=== PATIENT | male | born 1950 | race Caucasian/White ===

== ENCOUNTER 2020-06-06 09:00 | Inpatient (IN) | payer MEDICARE ==
[2020-06-06] VITALS (12 sets, daily range): BP systolic 103–155; BP diastolic 52–93
[~2020-06-06] VITALS: Ht 185.4 cm; Wt 111.8 kg
[2020-06-06] MEDS ORDERED: normal saline 1,000 ML IV SCH (09:20)
[2020-06-06] MEDS ORDERED: diphenhydrAMINE 25mg capsule PO PRN (09:20)
[2020-06-06] MEDS ORDERED: heparin 1,000unit/ml 10ml vial 10 ML ONE (10:32)
[2020-06-06] MEDS ORDERED: fentaNYL/PF 50MCG/1 ML 2ML syringe ONE ×3 (10:32→12:18)
[2020-06-06] MEDS ORDERED: iohexol 350MG/ML 100ml bottle IV ONE (10:32)
[2020-06-06] MEDS ORDERED: midazolam 2 mg/2 ml injection ONE ×4 (10:32→12:18)
[2020-06-06] MEDS ORDERED: iohexol 350 MG/ML 50ML vial IV ONE ×4 (10:32→12:09)
[2020-06-06] MEDS ORDERED: LIDOcaine 1% (10mg/ml)w/preservative injection 20ml MDV ONE (10:32)
[2020-06-06] MEDS ORDERED: ATOR80TA PO (10:57)
[2020-06-06] MEDS ORDERED: NITR0.4T51 SL (10:57)
[2020-06-06] MEDS ORDERED: ASPI-611 PO (10:57)
[2020-06-06] MEDS ORDERED: IRON18TA PO (10:57)
[2020-06-06] MEDS ORDERED: HYDR-4353 PO (10:57)
[2020-06-06] MEDS ORDERED: BISO5TAB PO (10:57)
[2020-06-06] MEDS ORDERED: VIT D PO (10:57)
[2020-06-06] MEDS ORDERED: AMLO5TAB4 PO (10:57)
[2020-06-06] MEDS ORDERED: OMEG-79 PO (10:57)
[2020-06-06] MEDS ORDERED: ZOLP5TAB8 PO (10:57)
[2020-06-06] MEDS ORDERED: LISINOPRIL PO (10:57)
[2020-06-06] MEDS ORDERED: GABA800T11 PO (10:57)
[2020-06-06] MEDS ORDERED: GLIM4TAB7 PO (10:57)
[2020-06-06] MEDS ORDERED: METF500T PO (10:57)
[2020-06-06] MEDS ORDERED: DORZ10DR19 EACHEYE (10:57)
[2020-06-06] MEDS ORDERED: VIT B12 PO (10:57)
[2020-06-06] MEDS ORDERED: diphenhydrAMINE 50 mg/ml inj ONE (12:05)
[2020-06-06] MEDS ORDERED: nitroGLYCERIN-Tridil 50MG/D5W 250 ML IV ONE (12:22)
[2020-06-06] MEDS ORDERED: metoprolol tartrate 1mg/ml inj IV ONE (12:30)
[2020-06-06] MEDS ORDERED: ticagrelor 90mg tablet ONE (12:48)
[2020-06-06] MEDS ORDERED: furosemide 40mg/4ml inj ONE (12:48)
[2020-06-06] MEDS ORDERED: magnesium hydroxide 30ml (MOM) UD suspension PO PRN (14:15)
[2020-06-06] MEDS ORDERED: OXAZEpam 15mg capsule PO PRN (14:15)
[2020-06-06] MEDS ORDERED: nitroGLYCERIN-Tridil 50MG/D5W 250 ML IV SCH ×2 (14:15→15:25)
[2020-06-06] MEDS ORDERED: proCHLORperazine 10 MG/2 ml inj IV PRN (14:15)
[2020-06-06] MEDS ORDERED: morphine 10mg/ml inj. IV PRN (14:15)
[2020-06-06] MEDS ORDERED: ondansetron/PF 4mg/2ml inj IV PRN (14:20)
[2020-06-06] MEDS ORDERED: morphine 4 MG/ML inj SYRINge IV PRN (14:25)
[2020-06-06] MEDS ORDERED: HYDROcodone/acetaminophen 10/325mg tab PO PRN ×3 (14:30→17:20)
[2020-06-06] MEDS: aspirin 81mg tab.chew PO SCH (15:04)
--- NOTE | 2020-06-06 15:23 | NUR ---
MD DR. REECE CHANGED NITRO DRIP FROM 20MCG TO 5MCG DUE TO HYPOTENSION
[2020-06-06 15:43] LABS: BASOPHILS % (AUTO) 0.5 % (0-1); EOSINOPHILS # (AUTO) 0.4 X10'3 (0-0.9); EOSINOPHILS % (AUTO) 6.8 % (0-6); HEMATOCRIT 35.7 % (42.0-52.0); HEMOGLOBIN 12.1 g/dl (14.0-17.9); LYMPHOCYTES # (AUTO) 1.6 X10'3 (1.1-4.8); LYMPHOCYTES % (AUTO) 30.8 % (21-51); MEAN CORPUSCULAR HEMOGLOBIN 29.5 PG (27.0-31.0); MEAN CORPUSCULAR VOLUME 86.9 FL (78-98); MONOCYTES # (AUTO) 0.4 X10'3 (0-0.9); MONOCYTES % (AUTO) 8.1 % (2-12); NEUTROPHILS # (AUTO) 2.8 X10'3 (1.8-7.7); NEUTROPHILS % (AUTO) 53.8 % (42-75); PLATELET COUNT 137 X10'3 (140-440); RED BLOOD COUNT 4.11 X10'6 (4.70-6.10); RED CELL DISTRIBUTION WIDTH 13.4 % (11.5-14.5); WHITE BLOOD COUNT 5.3 X10'3 (4.5-11.0)
[2020-06-06 15:53] LABS: ALBUMIN 3.8 G/DL (3.4-5.0); ANION GAP 10 (8-16); BLOOD UREA NITROGEN 24 MG/DL (7-18); BUN/CREATININE RATIO 13.6 (5.4-32.0); CALCIUM 8.7 MG/DL (8.5-10.1); CHLORIDE 106 MMOL/L (99-107); CREATININE 1.77 MG/DL (0.60-1.10); GLUCOSE 163 MG/DL (70-104); MAGNESIUM 1.8 MG/DL (1.5-2.4); POTASSIUM 4.9 MMOL/L (3.5-5.1); SODIUM 140 MMOL/L (135-145); TOTAL CARBON DIOXIDE 24.4 MMOL/L (24-32); eGFR 38 ML/MIN
[2020-06-06] MEDS ORDERED: normal saline 1000ml 1,000 ML IV SCH (17:10)
[2020-06-06] MEDS ORDERED: zolpidem 5mg tablet PO PRN (17:20)
[2020-06-06] MEDS ORDERED: nitroGLYCERIN 0.4mg SUBLingual tab SL PRN (17:20)
--- NOTE | 2020-06-06 18:00 | NUR ---
Patient in room PCU 3017. I have received report from Richy SIMMS and had the opportunity to ask questions and assume patient care.
--- NOTE | 2020-06-06 18:14 | NUR ---
Problems reprioritized. Patient report given, questions answered & plan of care reviewed with Nikki SIMMS.
[2020-06-06] MEDS: ticagrelor 90mg tablet PO SCH (19:46)
[2020-06-06] MEDS: docusate sod 100mg capsule PO SCH (19:47)
[2020-06-06] MEDS ORDERED: gabapentin 400mg capsule PO SCH ×2 (20:10→23:00)
[2020-06-06] MEDS ORDERED: atorvastatin 20mg tablet PO SCH (21:00)
[2020-06-06] MEDS: HYDROcodone/acetaminophen 10/325mg tab PO PRN (21:42)
[2020-06-07] MEDS ORDERED: gabapentin 400mg capsule PO SCH
[2020-06-07] MEDS: HYDROcodone/acetaminophen 10/325mg tab PO PRN (01:47)
[2020-06-07 02:00] VITALS: BP 110/59
--- NOTE | 2020-06-07 05:56 | NUR ---
END NOC NOTE Patient's medication needed to be retimed. Patient takes Gabapentin: 600 mg in the morning, 1200 mg at 1830, 1200 mg at 2200; [place] 20mg was changed to Q4H as well, all okayed by MD Orellana. Blood pressures have been stable all night with Nitroglycerin drip.
--- NOTE | 2020-06-07 06:41 | NUR ---
Problems reprioritized. Patient report given, questions answered & plan of care reviewed with Dasha SIMMS.
[2020-06-07] MEDS ORDERED: metFORMIN 500mg tablet PO SCH (07:00)
[2020-06-07] MEDS: ticagrelor 90mg tablet PO SCH (07:31)
[2020-06-07] MEDS: aspirin 81mg tab.chew PO SCH (07:32)
[2020-06-07] MEDS: docusate sod 100mg capsule PO SCH (07:34)
[2020-06-07 08:00] VITALS: BP_SYST 113
[2020-06-07] MEDS ORDERED: gabapentin 300mg capsule PO SCH (08:00)
[2020-06-07] MEDS ORDERED: atenolol 50mg tablet PO SCH (08:00)
[2020-06-07] MEDS ORDERED: OMEGA-3/DHA/EPA/FISH OIL 1 EACH CAPSULE.DR PO SCH (08:00)
[2020-06-07] MEDS ORDERED: lisinopril 5mg tablet PO SCH (08:00)
[2020-06-07] MEDS ORDERED: amLODIPine 5mg tablet PO SCH (08:00)
[2020-06-07] MEDS ORDERED: non-formulary drug (Aspirin (Aspir 81) 1 TAB) PO SCH (08:00)
[2020-06-07] MEDS ORDERED: dorzolamide 2% ophthalmic drops 10ml EACHEYE SCH (08:00)
[2020-06-07] MEDS ORDERED: TICA90TA PO (10:07)
[2020-06-07] MEDS ORDERED: FURO-150 PO (10:39)
--- NOTE | 2020-06-07 10:45 | NUR ---
Per MD orders patient stable for discharge home. All new prescriptions called in to pharmacy of preference. Discharge packet reviewed with patient at bedside and all questions answered to patient satisfaction. Implant card placed in wallet by patient. Tele monitoring discontinued. PIV discontinued cannula intact. All belongings sent with patient. Ambulated to private vehicle accompanied by
== END 2020-06-07 10:35 | disposition home or self-care (01) | DRG 247 ==
LOC: SSTAY O 09:00 → PCU 3S 12:50
PROVIDERS: ADMIT Internal Medicine Cardiovascular Disease; ATTEND Internal Medicine Cardiovascular Disease
PROC: 4A023N7 Measurement of Cardiac Sampling and Pressure, Left Heart, Percutaneous Approach (ICD-10-PCS; principal; 2020-06-06)
PROC: 027034Z Dilation of Coronary Artery, One Artery with Drug-eluting Intraluminal Device, Percutaneous Approach (ICD-10-PCS; 2020-06-06)
PROC: B2111ZZ Fluoroscopy of Multiple Coronary Arteries using Low Osmolar Contrast (ICD-10-PCS; 2020-06-06)
PROC: B2151ZZ Fluoroscopy of Left Heart using Low Osmolar Contrast (ICD-10-PCS; 2020-06-06)
DX: I25.10 Atherosclerotic heart disease of native coronary artery without angina pectoris (principal); I10 Essential (primary) hypertension; E78.5 Hyperlipidemia, unspecified; E11.9 Type 2 diabetes mellitus without complications; Z95.1 Presence of aortocoronary bypass graft
CPT/HCPCS: 93459; C9600; 36415; 80048; 82948; 83735; 85025; 85610; 93005; 99152; 99153; A4620; A6258; C1725; C1751; C1760; C1769; C1874; C1894; G0378; J1200; J1644; J1940; J2001; J2250; J3010; J3490; J7030; Q0163; Q9967

== ENCOUNTER 2023-08-29 07:13 | Day surgery (SDC) | payer MEDICARE ==
[2023-08-29] VITALS (9 sets, daily range): BP systolic 117–141; BP diastolic 63–72; PULSE 51–63; RESP 12–14; TEMP 98.2; O2SAT 94–99
[~2023-08-29] VITALS: Ht 185.4 cm; Wt 107.3 kg
[~2023-08-29 07:13] MED LIST: AMLO5TAB4 PO; ASPI-611 PO; ATOR80TA PO; BISO5TAB PO; DORZ10DR19 EACHEYE; FURO-150 PO; GABA800T11 PO; GLIM4TAB7 PO; HYDR-4353 PO; LISINOPRIL PO; METF500T PO; NITR0.4T51 SL; OMEG-79 PO; TICA90TA PO; ZOLP5TAB8 PO
[2023-08-29] MEDS ORDERED: diphenhydrAMINE 25mg capsule PO PRN (07:35)
[2023-08-29] MEDS ORDERED: normal saline 1,000 ML IV SCH (07:35)
[2023-08-29] MEDS ORDERED: GABA600T13 PO (08:00)
[2023-08-29] MEDS ORDERED: LISI10TA27 PO (08:02)
[2023-08-29 08:04] LABS: BASOPHILS % (AUTO) 0.3 % (0-1); EOSINOPHILS # (AUTO) 0.3 X10'3 (0-0.9); EOSINOPHILS % (AUTO) 4.1 % (0-6); HEMATOCRIT 39.6 % (42.0-52.0); HEMOGLOBIN 13.4 g/dl (14.0-17.9); LYMPHOCYTES # (AUTO) 1.8 X10'3 (1.1-4.8); LYMPHOCYTES % (AUTO) 29.6 % (21-51); MEAN CORPUSCULAR HEMOGLOBIN 28.7 PG (27.0-31.0); MEAN CORPUSCULAR HGB CONC 33.8 g/dL (33.0-36.5); MEAN CORPUSCULAR VOLUME 85.1 FL (78-98); MEAN PLATELET VOLUME 7.9 FL (7.4-10.4); MONOCYTES # (AUTO) 0.7 X10'3 (0-0.9); MONOCYTES % (AUTO) 11.4 % (2-12); NEUTROPHILS # (AUTO) 3.4 X10'3 (1.8-7.7); NEUTROPHILS % (AUTO) 54.6 % (42-75); PLATELET COUNT 141 X10'3 (140-440); RED BLOOD COUNT 4.65 X10'6 (4.70-6.10); RED CELL DISTRIBUTION WIDTH 14.1 % (11.5-14.5); WHITE BLOOD COUNT 6.2 X10'3 (4.5-11.0)
[2023-08-29] MEDS ORDERED: LANTUS SQ (08:04)
[2023-08-29] MEDS ORDERED: MORP15TA PO (08:04)
[2023-08-29 08:15] LABS: PROTHROMBIN TIME 10.4 SECONDS (9.0-12.0)
[2023-08-29 08:26] LABS: ALBUMIN 4.1 G/DL (3.4-5.0); ANION GAP 13 (8-16); BLOOD UREA NITROGEN 30 MG/DL (7-18); BUN/CREATININE RATIO 15.6 (10.0-20.0); CALCIUM 9.1 MG/DL (8.5-10.1); CHLORIDE 104 MMOL/L (99-107); CREATININE 1.92 MG/DL (0.60-1.10); GLUCOSE 116 MG/DL (70-104); MAGNESIUM 2.4 MG/DL (1.5-2.4); SODIUM 140 MMOL/L (135-145); TOTAL CARBON DIOXIDE 23.4 MMOL/L (24-32); eCRCL 38 ML/MIN; eGFR 34 ML/MIN
[2023-08-29] MEDS ORDERED: fentaNYL/PF 50MCG/1 ML 2ML syringe ONE (10:35)
[2023-08-29] MEDS ORDERED: LIDOcaine 1% 30ml preserv. free vial ONE (10:35)
[2023-08-29] MEDS ORDERED: midazolam 1 mg/ML 2ml injection ONE ×2 (10:35→11:06)
[2023-08-29] MEDS ORDERED: iohexol 350 MG/ML 50ML vial IV ONE (10:35)
[2023-08-29] MEDS ORDERED: heparin 1,000unit/ml 10ml vial 10 ML ONE (10:36)
[2023-08-29] MEDS ORDERED: iohexol 350MG/ML 100ml bottle IV ONE ×2 (10:36→11:18)
[2023-08-29] MEDS ORDERED: sodium bicarbonate 1meq/ml syr 150 ML in dextrose 5%-water 1,000 ML IV SCH (11:00)
[2023-08-29] MEDS ORDERED: proCHLORperazine 10 MG/2 ml inj IV PRN (11:55)
[2023-08-29] MEDS ORDERED: normal saline 1000ml 1,000 ML IV SCH (11:55)
[2023-08-29] MEDS ORDERED: HYDROcodone/acetaminophen 10/325mg tab PO PRN (11:55)
[2023-08-29] MEDS ORDERED: HYDROcodone/acetaminophen 5mg/325mg tablet PO PRN (11:55)
[2023-08-29] MEDS ORDERED: ondansetron/PF 4mg/2ml inj IV PRN (11:55)
== END 2023-08-29 14:50 | disposition home or self-care (01) ==
LOC: SSTAY O 07:13
PROVIDERS: ATTEND Internal Medicine Cardiovascular Disease
DX: I25.719 Atherosclerosis of autologous vein coronary artery bypass graft(s) with unspecified angina pectoris (principal); I25.82 Chronic total occlusion of coronary artery; E11.22 Type 2 diabetes mellitus with diabetic chronic kidney disease; I12.9 Hypertensive chronic kidney disease with stage 1 through stage 4 chronic kidney disease, or unspecified chronic kidney disease; N18.9 Chronic kidney disease, unspecified; G47.30 Sleep apnea, unspecified; Z87.891 Personal history of nicotine dependence; Z79.899 Other long term (current) drug therapy
CPT/HCPCS: 36415; 80048; 82948; 83735; 85025; 85610; 93005; 93459; 99152; J1644; J2250; J3010; J3490; J7030; Q0163; Q9967; 99153; A6258; C1725; C1760; C1894